=== PATIENT | male | born 1950 | race Caucasian/White ===

== ENCOUNTER 2017-09-30 08:45 | Outpatient (CLI) | payer MEDICARE ==
--- NOTE | 2017-09-30 11:43 | CT ---
CTA OF THE CHEST WITH CONTRAST: Date: 09/30/17 COMPARISON: None. HISTORY: Shortness of breath and tachycardia. TECHNIQUE: Multiple contiguous axial images were obtained in a CTA of the chest with contrast per pulmonary embo lism protocol. 3D oblique MIP reformats and direct coronal reformats were performed. FINDINGS: The pulmonary arteries are well opacified without filling defects to suggest pulmonary emboli. The he art is normal in size without focal cardiac abnormality. Calcifications are seen in the coronary chandu yary. No hilar or mediastinal lymphadenopathy seen. No pneumothorax or pleural effusions are seen. No suspicious pulmonary nodules are seen. No focal inf iltrates are seen in the lungs. Degenerative changes are seen in the spine. The visualized subdiaphragmatic structures and chest wall soft tissues are unremarkable. IMPRESSION: No evidence of pulmonary thromboembolism. POS: [facility]
== END 2017-09-30 08:46 | disposition home or self-care (01) ==
LOC: CT 08:45
PROVIDERS: ATTEND Internal Medicine Cardiovascular Disease
DX: R06.02 Shortness of breath (principal)
CPT/HCPCS: 71275

== ENCOUNTER 2017-10-24 15:39 | Outpatient (CLI) | payer MEDICARE ==
[2017-10-24 16:47] LABS: Hemoglobin 12.9 g/dL (14.0-18.0); Mean Corpuscular HGB CONC 32.7 g/dL (32.0-36.0); Mean Corpuscular Hemoglobin 31.8 pg (27.0-31.0); Mean Corpuscular Volume 97.2 fl (80.0-94.0); Mean Platelet Volume 6.6 fL (7.4-10.4); Platelet Count 353 thou/uL (130-400); RBC Distribution Width 13.8 % (11.5-14.5); Red Blood Cell (RBC) Count 4.06 mill/uL (4.70-6.10); White Blood Cell (WBC) Count 9.5 thou/uL (4.8-10.8)
[2017-10-24 16:55] LABS: PTT 28.6 SEC (22.9-36.1)
[2017-10-24 17:10] LABS: ALT (SGPT) 11 U/L (8-55); AST (SGOT) 12 U/L (5-34); Albumin 4.2 g/dL (3.4-4.8); Alkaline Phosphatase 79 U/L (40-150); Anion Gap 16 mmol/L (10-20); BUN (Urea Nitrogen) 12 mg/dL (8.4-25.7); Bilirubin, Total 0.4 mg/dL (0.2-1.2); Calc. Creatinine Clearance 0 mL/min (70-130); Calcium 9.7 mg/dL (7.8-10.44); Carbon Dioxide 25 mmol/L (23-31); Chloride 99 mmol/L (98-107); Estimated GFR-MDRD Greater than 90; Globulin 2.9 g/dL (2.4-3.5); Glucose 151 mg/dL (80-115); Potassium 4.5 mmol/L (3.5-5.1); Protein, Total 7.1 g/dL (5.8-8.1); Sodium 135 mmol/L (136-145)
== END 2017-10-24 15:40 | disposition home or self-care (01) ==
LOC: LABBT 15:39
PROVIDERS: ATTEND Internal Medicine Cardiovascular Disease
DX: Z01.818 Encounter for other preprocedural examination (principal); R94.39 Abnormal result of other cardiovascular function study
CPT/HCPCS: 80053; 85027; 85610; 85730; 93005; 93010

== ENCOUNTER 2017-10-26 10:00 | Inpatient (IN) | payer MEDICARE ==
[2017-10-26] MEDS ORDERED: Diazepam 5 MG TAB PO SCH (11:00)
[2017-10-26] MEDS ORDERED: Diazepam 5 MG TAB ONE (11:43)
[2017-10-26 12:12] LABS: Cardiac Risk 4.9 (Less than 4.5)
[2017-10-26] MEDS ORDERED: Midazolam HCl 2 mg/2 ml Vial ONE (12:35)
[2017-10-26] MEDS ORDERED: Fentanyl 100 MCG/2 ML VIAL ONE (12:35)
[2017-10-26] MEDS ORDERED: Verapamil 5 MG/2 ML VIAL ONE (12:39)
[2017-10-26] MEDS ORDERED: Heparin 10,000 UNITS/1 ML VIAL ONE ×2 (12:39→13:18)
[2017-10-26] MEDS ORDERED: Nitroglycerin 100MG/250ML BOT 250 ML ONE (12:39)
[2017-10-26] MEDS ORDERED: Adenosine 6 MG/2 ML VIAL ONE (13:07)
[2017-10-26] MEDS ORDERED: Iopamidol 370 76% 100 ML VIAL ONE (13:16)
[2017-10-26] MEDS ORDERED: Iopamidol 370 76% 50 ML VIAL FS ONE (13:16)
[2017-10-26] MEDS ORDERED: Nitroglycerin 0.4 MG TAB 1 EACH SL PRN (17:45)
[2017-10-26] MEDS ORDERED: Sodium Chloride 0.9% 1,000 ML IV SCH (17:45)
[2017-10-26 18:58] VITALS: BMI 41.8
[2017-10-26] MEDS ORDERED: HumaLOG 300 UNITS/3 ML VIAL SC PRN ×2 (19:00→21:17)
[2017-10-26] MEDS ORDERED: TICAGRELOR 90 MG TABLET PO SCH (19:00)
[2017-10-26] MEDS: Carvedilol 6.25 MG TAB PO SCH (20:04)
[2017-10-26] MEDS: Gabapentin 300 MG CAP PO SCH (20:05)
[2017-10-26] MEDS: Insulin Detemir 100 UNITS/ML 50 UNITS in Pre-Filled Syringe 1 EACH SC SCH (20:11)
[2017-10-26] MEDS ORDERED: [UNRECOGNIZED DRUG - OTHER] PO SCH (21:00)
[2017-10-26] MEDS ORDERED: Atorvastatin Calcium 10 MG TAB PO SCH (21:00)
[2017-10-26] MEDS ORDERED: Cyclobenzaprine 10 MG TAB PO SCH (21:00)
[2017-10-26] MEDS ORDERED: D3 PO SCH (21:00)
[2017-10-26] MEDS ORDERED: GLUCOSAM PO SCH (21:00)
[2017-10-26] MEDS ORDERED: Tamsulosin HCl 0.4 MG CAP PO SCH (21:00)
[2017-10-26] MEDS ORDERED: Multivit, Therapeutic 1 TAB PO SCH (21:00)
[2017-10-26] MEDS ORDERED: MANG PO SCH (21:00)
[2017-10-26] MEDS ORDERED: Dextrose 5% in Water 1,000 ML IV PRN (21:17)
[2017-10-26] MEDS ORDERED: Dextrose 50% Abboject 50 ML SYRINGE IVP PRN (21:17)
[2017-10-27 04:13] VITALS: TEMP 98.4
[2017-10-27 05:05] LABS: #Eosinphils 0.3 thou/uL (0.0-0.7); #Lymphocytes 1.5 thou/uL (1.20-3.40); #Monocytes 0.5 thou/uL (0.11-0.59); #Neutrophils 5.7 thou/uL (1.40-6.50); %Basophils 0.4 % (0.0-1.0); %Eosinophils 3.5 % (0.0-10.0); %Lymphocytes 18.8 % (21.0-51.0); %Neutrophils 71.3 % (42.0-75.0); Hemoglobin 12.3 g/dL (14.0-18.0); Mean Corpuscular HGB CONC 33.8 g/dL (32.0-36.0); Mean Corpuscular Hemoglobin 32.5 pg (27.0-31.0); Mean Platelet Volume 6.9 fL (7.4-10.4); Platelet Count 312 thou/uL (130-400); RBC Distribution Width 13.5 % (11.5-14.5); White Blood Cell (WBC) Count 7.9 thou/uL (4.8-10.8)
[2017-10-27 05:22] LABS: ALT (SGPT) 12 U/L (8-55); AST (SGOT) 11 U/L (5-34); Albumin 3.7 g/dL (3.4-4.8); Alkaline Phosphatase 67 U/L (40-150); Anion Gap 14 mmol/L (10-20); BUN (Urea Nitrogen) 9 mg/dL (8.4-25.7); Bilirubin, Total 0.4 mg/dL (0.2-1.2); Calc. Creatinine Clearance 172 mL/min (70-130); Calcium 9.2 mg/dL (7.8-10.44); Carbon Dioxide 28 mmol/L (23-31); Chloride 100 mmol/L (98-107); Estimated GFR-MDRD Greater than 90; Globulin 2.7 g/dL (2.4-3.5); Glucose 140 mg/dL (80-115); Potassium 3.8 mmol/L (3.5-5.1); Protein, Total 6.4 g/dL (5.8-8.1); Sodium 138 mmol/L (136-145)
[2017-10-27] MEDS ORDERED: Levothyroxine Sodium 75 MCG TAB PO SCH (06:00)
--- NOTE | 2017-10-27 07:14 | DIS ---
DISCHARGE DIAGNOSIS: 1. Coronary artery disease. 2. Status post stent placement. PROCEDURE: Coronary angiography with stent placement to the right coronary artery. COMPLICATIONS: None. HOSPITAL COURSE: Mr. Clemons is a very pleasant 66-year-old gentleman who recently underwent an outpa tient angiography. He underwent successful stent placement. It was felt to be too late in the day t o send the patient home and the patient was admitted overnight for observation. He did well with no immediate complications. DISCHARGE MEDICATIONS: Cyclobenzaprine 10 mg at bedtime, multivitamin, aspirin 81 daily, tamsulosin 0.4 mg at bedtime, gabapentin 300 mg b.i.d., levothyroxine 75 daily, hydrochlorothiazide 25 daily, ca rvedilol 12.5 b.i.d., hold metformin x2 days, lisinopril 40 mg daily, pioglitazone 50 mg daily, Roxana log as prescribed, allopurinol 300 mg daily, glucosamine chondroitin, pravastatin 40 daily, Diltiazem 90 mg daily, Bydureon 2 mg subcu as directed, insulin as directed, Plavix 75 daily, pantoprazole 40 mg daily. CONDITION AT DISCHARGE: Stable.
[2017-10-27] MEDS ORDERED: metFORMIN 500 MG TAB PO SCH (08:00)
[2017-10-27] MEDS ORDERED: Lisinopril 20 MG TAB PO SCH (09:00)
[2017-10-27] MEDS ORDERED: Hydrochlorothiazide 25 MG TAB PO SCH (09:00)
[2017-10-27] MEDS ORDERED: Allopurinol 300 MG TAB PO SCH (09:00)
[2017-10-27] MEDS ORDERED: Diltiazem HCl SR 90 mg Capsule PO SCH (09:00)
[2017-10-27] MEDS ORDERED: Clopidogrel Bisulfate 75 MG TAB PO SCH (09:00)
[2017-10-27] MEDS ORDERED: Pioglitazone HCl 15 MG TAB PO SCH (09:00)
[2017-10-27] MEDS: Carvedilol 6.25 MG TAB PO SCH (09:16)
[2017-10-27 09:17] VITALS: BP 145/68
[2017-10-27] MEDS: Insulin Detemir 100 UNITS/ML 50 UNITS in Pre-Filled Syringe 1 EACH SC SCH (09:17)
[2017-10-27] MEDS: Gabapentin 300 MG CAP PO SCH (09:17)
[2017-10-29] MEDS ORDERED: EXENATIDE MICROSPHERES SC SCH (09:00)
== END 2017-10-27 09:52 | disposition home or self-care (01) | DRG 247 ==
LOC: CCL 10:00 → 2SW 17:47 → OBSVTOIN 17:47
PROVIDERS: ADMIT Internal Medicine Cardiovascular Disease; ATTEND Internal Medicine Cardiovascular Disease
PROC: 4A023N7 Measurement of Cardiac Sampling and Pressure, Left Heart, Percutaneous Approach (ICD-10-PCS; principal; 2017-10-26)
PROC: 027034Z Dilation of Coronary Artery, One Artery with Drug-eluting Intraluminal Device, Percutaneous Approach (ICD-10-PCS; 2017-10-26)
PROC: B2111ZZ Fluoroscopy of Multiple Coronary Arteries using Low Osmolar Contrast (ICD-10-PCS; 2017-10-26)
DX: I25.118 Atherosclerotic heart disease of native coronary artery with other forms of angina pectoris (principal); E11.9 Type 2 diabetes mellitus without complications; I10 Essential (primary) hypertension; Z86.73 Personal history of transient ischemic attack (TIA), and cerebral infarction without residual deficits; Z85.828 Personal history of other malignant neoplasm of skin
CPT/HCPCS: 36415; 36416; 76942; 80053; 80061; 85025; 92928; 93005; 93010; 93458; 93798; 99152; 99153; C1725; C1769; C1874; C1887; C9600; J0153; J1644; J1815; J2250; J3010

== ENCOUNTER 2018-06-30 13:52 | Outpatient (CLI) | payer MEDICARE ==
--- NOTE | 2018-06-30 16:48 | MRI ---
LEFT SHOULDER MRI WITHOUT IV CONTRAST: HISTORY: A 67-year-old male with a history of tear of left rotator cuff, unspecified. Left shoulder pain for one year, getting worse. TECHNIQUE: Multiplanar, multisequence MRI examination of the left shoulder is performed. FINDINGS: There are some AC joint arthrosis changes. There is moderate fluid within the subacromial bursa. Th ere is a small, probably full-thickness, nonretracted tear at the footplate of the supraspinatus tend on, certainly extending to the bursal surface. The infraspinatus tendon, subscapularis tendon, and b iceps tendon appear intact. There is some indistinction in the region of the posterior-superior labr um, raising concern for a degenerative type tear. Minimal generalized glenohumeral joint cartilage l oss. Rotator cuff muscles are within normal limits in signal and volume. IMPRESSION: 1. Small punctate, nonretracted, full-thickness, supraspinatus tendon tear at the footplate. 2. Some fluid within the subacromial bursa. 3. Mild acromioclavicular joint arthrosis. 4. Some irregularity and blunting of the posterior-superior labrum, probably a degenerative type sup erior labrum anterior and posterior tear or focal fraying. POS: [facility]
== END 2018-06-30 13:53 | disposition home or self-care (01) ==
LOC: TBSIIMAG 13:52
PROVIDERS: ATTEND Orthopaedic Surgery
DX: M75.122 Complete rotator cuff tear or rupture of left shoulder, not specified as traumatic (principal); M19.012 Primary osteoarthritis, left shoulder; R93.6 Abnormal findings on diagnostic imaging of limbs

== ENCOUNTER 2018-12-28 02:53 | Outpatient (CLI) | payer MEDICARE ==
[2018-12-28 16:45] LABS: #Eosinphils 0.4 thou/uL (0.0-0.7); #Lymphocytes 2.5 thou/uL (1.20-3.40); #Monocytes 0.4 thou/uL (0.11-0.59); #Neutrophils 6.3 thou/uL (1.40-6.50); %Basophils 0.5 % (0.0-1.0); %Lymphocytes 25.6 % (21.0-51.0); %Monocytes 4.5 % (0.0-10.0); %Neutrophils 65.4 % (42.0-75.0); Hemoglobin 13.5 g/dL (14.0-18.0); Mean Corpuscular HGB CONC 33.4 g/dL (32.0-36.0); Mean Corpuscular Hemoglobin 31.3 pg (27.0-31.0); Mean Corpuscular Volume 93.8 fL (78.0-98.0); Platelet Count 358 thou/uL (130-400); RBC Distribution Width 13.2 % (11.5-14.5); White Blood Cell (WBC) Count 9.7 thou/uL (4.8-10.8)
== END 2018-12-28 02:54 | disposition home or self-care (01) ==
LOC: LABBT 02:53
PROVIDERS: ATTEND Orthopaedic Surgery
DX: Z01.818 Encounter for other preprocedural examination (principal); M75.102 Unspecified rotator cuff tear or rupture of left shoulder, not specified as traumatic
CPT/HCPCS: 85025; 93005; 93010

== ENCOUNTER 2019-01-04 08:05 | Day surgery (SDC) | payer MEDICARE ==
[2018-12-28 15:28] VITALS: BMI 38.7
[2019-01-04] MEDS ORDERED: Midazolam HCl 2 mg/2 ml Vial ONE ×2 (08:53→09:16)
[2019-01-04] MEDS ORDERED: Fentanyl 100 MCG/2 ML VIAL ONE ×2 (08:53→09:16)
[2019-01-04] MEDS ORDERED: Promethazine HCl 25 MG/ML VIAL IM PRN (09:22)
[2019-01-04] MEDS ORDERED: traMADol HCl 50 MG TAB PO PRN ×2 (09:22)
[2019-01-04] MEDS ORDERED: Ondansetron PF 4 MG/2 ML Vial IVP PRN (09:22)
[2019-01-04] MEDS ORDERED: Ropivacaine 0.2% 550 ML 550 ML NERVE BLCK SCH (09:22)
[2019-01-04] MEDS ORDERED: Zolpidem Tartrate 5 MG TAB PO PRN (09:22)
[2019-01-04] MEDS ORDERED: HYDROcodone/Acetaminophen 10/325 mg Tablet PO PRN ×2 (09:22)
[2019-01-04] MEDS ORDERED: Ketorolac Tromethamine 30 MG/ML VIAL IVP PRN (09:22)
[2019-01-04] MEDS ORDERED: Fentanyl 100 MCG/2 ML VIAL IV PRN (09:23)
[2019-01-04] MEDS ORDERED: Ropivacaine 0.2% HCl/PF (40 MG/20 ML VIAL) ONE (09:41)
[2019-01-04] MEDS ORDERED: Ropivacaine 0.5% HCl/PF (150 MG/30 ML VIAL) ONE (09:41)
[2019-01-04] MEDS ORDERED: PHENYLEPHRINE-NS 100 MCG/ML 10 ML SYRINGE ONE (10:23)
[2019-01-04] MEDS ORDERED: PROPOFOL 200 MG/20 ML VIAL ONE (10:23)
[2019-01-04] MEDS ORDERED: Dexamethasone 20 MG/5 ML VIAL ONE (10:23)
[2019-01-04] MEDS ORDERED: Ondansetron PF 4 MG/2 ML Vial ONE (10:23)
[2019-01-04] MEDS ORDERED: Glycopyrrolate 0.2 MG/ML 5 ML SYRINGE ONE (10:23)
[2019-01-04] MEDS ORDERED: Rocuronium Bromide 10 MG/ML (10ML VIAL) ONE (10:23)
--- NOTE | 2019-01-04 14:20 | OP ---
DATE OF PROCEDURE: 01/04/2019 PREOPERATIVE DIAGNOSIS: Rotator cuff tear impingement syndrome, left shoulder. POSTOPERATIVE DIAGNOSIS: Rotator cuff tear impingement syndrome, left shoulder. PROCEDURES PERFORMED: Arthroscopic subacromial decompression, arthroscopic rotator cuff repair using a single Corkscrew suture anchor and a self-punching SwiveLock suture anchor. ANESTHESIA: General. ESTIMATED BLOOD LOSS: Minimal. SPECIMENS: None. DRAINS: None. COMPLICATIONS: None. DESCRIPTION OF PROCEDURE: The patient was taken to the operating room, where general anesthesia was induced. He was placed in the right lateral decubitus position. The left arm was placed in 15 pounds of traction. The scope was placed in glenohumeral joint, which is in very good condition. The biceps was in good condition. He had expected labral fraying for age. This was left alone. The scope was placed in the subacromial bursa. Rotator cuff tear was easily identified. I performed a subacromial decompression and bursectomy. A CA ligament was taken down and hemostasis was obtained. I freshened the greater tuberosity, I passed a Corkscrew suture anchor through the defect. The suture was passed through the rotator cuff and tied down with a good watertight repair and then reinforced with a double row using a SwiveLock. Shoulder was drained. Portals were closed with nylon sutures. Sterile dressing was applied. There were no complications. Job ID: [id number]
== END 2019-01-04 13:37 | disposition home or self-care (01) ==
LOC: SDC 08:05
PROVIDERS: ATTEND Orthopaedic Surgery
PROC: 0LQ24ZZ Repair Left Shoulder Tendon, Percutaneous Endoscopic Approach (ICD-10-PCS; principal; 2019-01-04)
PROC: 0RHK44Z Insertion of Internal Fixation Device into Left Shoulder Joint, Percutaneous Endoscopic Approach (ICD-10-PCS; 2019-01-04)
PROC: 0RNK4ZZ Release Left Shoulder Joint, Percutaneous Endoscopic Approach (ICD-10-PCS; 2019-01-04)
DX: M75.122 Complete rotator cuff tear or rupture of left shoulder, not specified as traumatic (principal); M75.42 Impingement syndrome of left shoulder; E11.9 Type 2 diabetes mellitus without complications; E78.5 Hyperlipidemia, unspecified; E03.9 Hypothyroidism, unspecified; K21.9 Gastro-esophageal reflux disease without esophagitis; E66.9 Obesity, unspecified; Z68.38 Body mass index [BMI] 38.0-38.9, adult; Z86.73 Personal history of transient ischemic attack (TIA), and cerebral infarction without residual deficits; Z96.651 Presence of right artificial knee joint; Z79.899 Other long term (current) drug therapy; Z79.4 Long term (current) use of insulin; Z79.82 Long term (current) use of aspirin; Z79.02 Long term (current) use of antithrombotics/antiplatelets
CPT/HCPCS: 29826; 29827; 82962; 97139; A4306; C1713; 36416; J0690; J2250; J2795; J3010

== ENCOUNTER 2019-05-01 19:30 | Outpatient (CLI) | payer MEDICARE | END 2019-05-01 19:31 | disposition home or self-care (01) | LOC: SLEEPLAB 19:30 | PROVIDERS: ATTEND Family Medicine | DX: G47.33 Obstructive sleep apnea (adult) (pediatric) (principal); R53.83 Other fatigue; E66.9 Obesity, unspecified; I10 Essential (primary) hypertension; E11.9 Type 2 diabetes mellitus without complications; I25.10 Atherosclerotic heart disease of native coronary artery without angina pectoris; K21.9 Gastro-esophageal reflux disease without esophagitis; F41.9 Anxiety disorder, unspecified | CPT/HCPCS: 95810 ==

== ENCOUNTER 2020-06-16 13:37 | Outpatient (CLI) | payer MEDICARE ==
[~2020-06-16 13:37] MED LIST: Iopamidol 370 76% 100 ML VIAL ONE
[2020-06-16 14:20] LABS: Estimated GFR-MDRD - POC Greater than 90
--- NOTE | 2020-06-16 15:00 | CT ---
CT ABDOMEN AND PELVIS WITH AND WITHOUT IV CONTRAST 06/16/2020 CLINICAL INFORMATION: Right-sided abdominal pain that radiates from back to front. Symptoms of been present for months. COMPARISON: CT angiogram chest on 09/30/2017 Technique: Multiple contiguous axial CT images are obtained through the abdomen and pelvis with IV contrast. Cor onal reformatted images are provided. FINDINGS: Lower Chest: There is an approximately 5 mm subpleural pulmonary nodule lateral left lung base which is stable in size compared to prior exam. Lung bases are otherwise clear. Vessels: Vascular calcifications are seen in the abdominal aorta and iliac arteries. Abdomen: Portal vein:Patent Gallbladder: Within normal limits for CT imaging. Liver: within normal limits. Spleen: within normal limits. Pancreas: within normal limits. Adrenals: within normal limits. Kidneys: A 4 mm nonobstructing calculus midportion left kidney is present. A tiny less than 5 mm hypo dense lesion is seen in the midportion left kidney which is too small to further characterize. There is no hydronephrosis. No ureteral calculus is visualized. Bowel: Evidence of colonic diverticulosis. Loops of small bowel are normal in caliber. Appendix: What is thought to be the appendix is normal in caliber. Peritoneum: No ascites or free air; no fluid collection. Mesentery and Retroperitoneum: No enlarged mesenteric or retroperitoneal lymph nodes. Abdominal Wall: Tiny fat-containing umbilical hernia. Pelvis: Reproductive Organs: Prostate gland is mildly enlarged measuring 5.1 cm in transverse dimension. Bladder: Decompressed but normal in appearance. Bones: Multilevel degenerative changes in the spine with degenerative changes at the pubic symphysis. No suspicious lytic or sclerotic osseous lesions are identified. IMPRESSION: 1. Nonobstructing left renal calculus. 2. Colonic diverticulosis. 3. Stable subpleural left lower lobe pulmonary nodule. 4. No acute findings in the abdomen or pelvis.
== END 2020-06-16 13:38 | disposition home or self-care (01) ==
LOC: BICCT 13:37
PROVIDERS: ATTEND Family Medicine
DX: R10.9 Unspecified abdominal pain (principal); N20.0 Calculus of kidney; K57.30 Diverticulosis of large intestine without perforation or abscess without bleeding; R91.1 Solitary pulmonary nodule
CPT/HCPCS: 74178; 82565; Q9967